=== PATIENT | male | born 1995 | race Hispanic/Latino ===

== ENCOUNTER 2017-11-18 07:27 | Day surgery (SDC) | payer MEDICAID ==
[2017-11-17 11:25] VITALS: BMI 30.8
[2017-11-18 08:16] VITALS: O2SAT 100
[2017-11-18] MEDS ORDERED: Propofol 10 mg/ml Inj (20 ML) ONE ×3 (09:04→09:30)
[2017-11-18] MEDS ORDERED: Lactated Ringer's 500 ML IV ONE ×2 (09:06)
[2017-11-18] MEDS ORDERED: Simethicone 40 mg/0.6 ml Liquid (30 ml) ONE (09:32)
[2017-11-18 09:58] VITALS: TEMP 97.3
[2017-11-18 10:57] VITALS: BP 102/60; PULSE 72; RESP 18
== END 2017-11-18 10:55 | disposition hospice, home (50) ==
LOC: C.ENDO 07:27
PROVIDERS: ATTEND Internal Medicine
DX: K52.9 Noninfective gastroenteritis and colitis, unspecified (principal); R19.5 Other fecal abnormalities; Z80.0 Family history of malignant neoplasm of digestive organs; Z83.79 Family history of other diseases of the digestive system; K64.8 Other hemorrhoids
CPT/HCPCS: 45380; 88305; J2001; J2704; J7120